=== PATIENT | female | born 1975 | race Asian ===

== ENCOUNTER 2018-01-03 08:21 | Inpatient (IN) | payer OTHER ==
[2018-01-03 08:54] LABS: ADD MAN DIFF? NO
[2018-01-03 08:59] LABS: WHITE BLOOD COUNT 9.1 10^3/ul (4.8-10.8)
[2018-01-03 08:59] LABS: BASOPHILS % 0.3 % (0.0-2.0); EOSINOPHILS # 0.1 10^3/ul (0.0-0.5); EOSINOPHILS % 1.2 % (0.0-7.0); HEMATOCRIT 42.1 % (37.0-47.0); HEMOGLOBIN 14.3 g/dl (12.0-16.0); IMMATURE GRANS #M 0.03 10^3/ul; IMMATURE GRANS % (M) 0.3 %; LYMPHOCYTES # 2.6 10^3/ul (0.8-2.9); LYMPHOCYTES % 28.7 % (15.0-51.0); MEAN CORPUSCULAR HEMOGLOBIN 28.7 pg (29.0-33.0); MEAN CORPUSCULAR VOLUME 84.4 fl (82.0-101.0); MEAN PLATELET VOLUME 9.2 fl (7.4-10.4); MONOCYTE # 0.5 10^3/ul (0.3-0.9); MONOCYTES % 5.8 % (0.0-11.0); NEUTROPHIL # 5.8 10^3/ul (1.6-7.5); NEUTROPHILS % 63.7 % (39.0-77.0); PLATELET COUNT 320 10^3/UL (140-415); RED BLOOD COUNT 4.99 10^6/ul (4.20-5.40); RED CELL DISTRIBUTION WIDTH 13.1 % (11.5-14.5)
[2018-01-03 09:12] LABS: HEMOGLOBIN A1C 10.7 % (0-5.9)
[2018-01-03 09:16] LABS: ALANINE AMINOTRANSFERASE 63 IU/L (13-69); ALBUMIN 4.1 g/dl (3.3-4.9); ALBUMIN/GLOBULIN RATIO 0.78; ALKALINE PHOSPHATASE 76 IU/L (42-121); ANION GAP 13 (8-16); ASPARTATE AMINO TRANSFERASE 54 IU/L (15-46); BILIRUBIN,INDIRECT 0.3 mg/dl (0-1.1); BILIRUBIN,TOTAL 0.3 mg/dl (0.2-1.3); BLOOD UREA NITROGEN 9 mg/dl (7-20); CARBON DIOXIDE 27 mmol/L (21-31); CHLORIDE 103 mmol/L (97-110); CHOL/HDL RATIO 3.4 RATIO; CHOLESTEROL 198 mg/dl (100-200); CREATINE KINASE 98 IU/L (23-200); CREATININE 0.53 mg/dl (0.44-1.00); GLUCOSE 305 mg/dl (70-220); HDL CHOLESTEROL 57 mg/dl (34-88); INR 0.87; LDL CHOLESTEROL,CALCULATED 114 mg/dl; PROTIME 11.9 Sec (11.9-14.9); PT RATIO 0.9; SODIUM 139 mmol/L (135-144); TOTAL PROTEIN 9.3 g/dl (6.1-8.1); TRIGLYCERIDES 133 mg/dl (0-149)
[2018-01-03 09:17] LABS: PARTIAL THROMBOPLASTIN TIME 26.9 Sec (25.0-35.0)
[2018-01-03] MEDS: OCULAR LUBRICANT 3.5 GM OPH OINT LEFT EYE ×2 (09:20→09:38)
[2018-01-03] MEDS: VALACYCLOVIR 500 MG TAB PO ×2 (09:21→21:46)
[2018-01-03 09:27] LABS: CK INDEX 0.4; CK-MB 0.37 ng/ml (0.0-2.4); TROPONIN-I < 0.010 ng/ml (0.000-0.120)
[2018-01-03] MEDS: LABETALOL HCL 20MG INJ IV (09:38)
[2018-01-03] MEDS ORDERED: predniSONE 20 MG TAB PO (10:00)
[2018-01-03] MEDS: SOD CHLORIDE 0.9% 1,000 ML IV (10:18)
[2018-01-03 10:44] LABS: ADD UMIC NO; UR ASCORBIC ACID 20 mg/dL (NEGATIVE); UR BILIRUBIN (Dip) NEGATIVE (NEGATIVE); UR BLOOD (Dip) NEGATIVE (NEGATIVE); UR CLARITY CLEAR (CLEAR); UR COLOR STRAW (YELLOW); UR GLUCOSE (Dip) 3+ mg/dL (NEGATIVE); UR KETONES (Dip) NEGATIVE (NEGATIVE); UR LEUKOCYTE ESTERASE (Dip) NEGATIVE Leu/ul (NEGATIVE); UR NITRITE (Dip) NEGATIVE (NEGATIVE); UR SPECIFIC GRAVITY (Dip) 1.011 (1.003-1.030); UR TOTAL PROTEIN (Dip) NEGATIVE (NEGATIVE); UR UROBILINOGEN (Dip) NEGATIVE (NEGATIVE)
[2018-01-03] MEDS ORDERED: ONDANSETRON 4 MG INJ IV ×2 (11:30→16:00)
[2018-01-03] MEDS ORDERED: NACL 0.9% 3 ML SYG IV (16:00)
[2018-01-03] MEDS ORDERED: IBUPROFEN 600 MG TAB PO (16:00)
[2018-01-03] MEDS ORDERED: GLUCOSE GEL 15 GRAM TUBE BUCCAL (16:30)
[2018-01-03] MEDS ORDERED: GLUCAGON 1 MG INJ IM (16:30)
[2018-01-03] MEDS ORDERED: DEXTROSE 50% 50 ML SYRINGE IV ×2 (16:30)
[2018-01-03] MEDS ORDERED: GLUCOSE GEL 15 GRAM TUBE PO ×2 (16:30)
[2018-01-03] MEDS: metFORMIN 500 MG TAB PO (18:07)
[2018-01-03] MEDS: INSULIN ASPART [NOVOLOG] 3 ML PEN SC ×3 (18:15→20:20)
[2018-01-03 19:24] LABS: TROPONIN-I < 0.010 ng/ml (0.000-0.120)
[2018-01-03] MEDS: FAMOTIDINE 20 MG TAB PO (20:12)
[2018-01-03] MEDS: ATORVASTATIN 10 MG TAB PO (20:12)
[2018-01-03] MEDS: hydrALAzine 20 MG INJ IV (20:13)
[2018-01-03] MEDS: INSULIN GLARGINE [LANTus] (100 UNITS/ML) SYG SC (21:10)
[2018-01-04 01:37] LABS: TROPONIN-I < 0.010 ng/ml (0.000-0.120)
[2018-01-04] MEDS: ACCU-CHEK XX (02:00)
[2018-01-04] MEDS: ACETAMINOPHEN 325 MG TAB PO (02:51)
[2018-01-04 05:59] LABS: ADD MAN DIFF? NO
[2018-01-04 06:10] LABS: BASOPHILS % 0.4 % (0.0-2.0); EOSINOPHILS # 0.1 10^3/ul (0.0-0.5); EOSINOPHILS % 1.2 % (0.0-7.0); HEMATOCRIT 40.1 % (37.0-47.0); HEMOGLOBIN 13.5 g/dl (12.0-16.0); IMMATURE GRANS #M 0.03 10^3/ul; IMMATURE GRANS % (M) 0.3 %; LYMPHOCYTES # 2.8 10^3/ul (0.8-2.9); LYMPHOCYTES % 26.9 % (15.0-51.0); MEAN CORPUSCULAR HEMOGLOBIN 28.3 pg (29.0-33.0); MEAN CORPUSCULAR HGB CONC 33.7 g/dl (32.0-37.0); MEAN CORPUSCULAR VOLUME 84.1 fl (82.0-101.0); MEAN PLATELET VOLUME 9.4 fl (7.4-10.4); MONOCYTE # 0.7 10^3/ul (0.3-0.9); MONOCYTES % 6.2 % (0.0-11.0); NEUTROPHIL # 6.8 10^3/ul (1.6-7.5); PLATELET COUNT 302 10^3/UL (140-415); RED BLOOD COUNT 4.77 10^6/ul (4.20-5.40); RED CELL DISTRIBUTION WIDTH 13.2 % (11.5-14.5)
[2018-01-04 06:10] LABS: WHITE BLOOD COUNT 10.5 10^3/ul (4.8-10.8)
[2018-01-04 06:53] LABS: ANION GAP 13 (8-16); BLOOD UREA NITROGEN 9 mg/dl (7-20); CALCIUM 9.2 mg/dl (8.4-10.2); CARBON DIOXIDE 25 mmol/L (21-31); CHLORIDE 105 mmol/L (97-110); CREATININE 0.53 mg/dl (0.44-1.00); GLUCOSE 219 mg/dl (70-220); SODIUM 139 mmol/L (135-144)
[2018-01-04 07:00] LABS: TROPONIN-I < 0.010 ng/ml (0.000-0.120)
[2018-01-04] MEDS: metFORMIN 500 MG TAB PO ×2 (07:30→17:22)
[2018-01-04] MEDS: INSULIN ASPART [NOVOLOG] 3 ML PEN SC ×7 (07:34→20:04)
[2018-01-04] MEDS: predniSONE 20 MG TAB PO (08:20)
[2018-01-04] MEDS: VALACYCLOVIR 500 MG TAB PO ×3 (08:20→20:04)
[2018-01-04] MEDS: FAMOTIDINE 20 MG TAB PO ×2 (08:21→20:04)
[2018-01-04] MEDS: LINAGLIPTIN 5 MG TABLET PO (08:21)
[2018-01-04] MEDS: ASPIRIN 81 MG TAB PO (08:21)
[2018-01-04] MEDS: ENOXAPARIN 30 MG/0.3 ML SYG SC (08:27)
[2018-01-04] MEDS ORDERED: ASPIRIN 81 MG TAB PO (09:00)
[2018-01-04] MEDS: NPH, HUMAN INSULIN ISOPHANE 3ML VIAL SC (10:19)
[2018-01-04] MEDS: ATORVASTATIN 10 MG TAB PO (20:04)
[2018-01-04] MEDS: INSULIN GLARGINE [LANTus] (100 UNITS/ML) SYG SC (20:25)
[2018-01-05] MEDS: ACCU-CHEK XX (02:00)
[2018-01-05] MEDS: metFORMIN 500 MG TAB PO ×2 (07:47→17:39)
[2018-01-05] MEDS: INSULIN ASPART [NOVOLOG] 3 ML PEN SC ×6 (07:52→17:53)
[2018-01-05] MEDS: VALACYCLOVIR 500 MG TAB PO ×2 (08:54→12:12)
[2018-01-05] MEDS: predniSONE 20 MG TAB PO (08:54)
[2018-01-05] MEDS: ASPIRIN 81 MG TAB PO (08:55)
[2018-01-05] MEDS: LINAGLIPTIN 5 MG TABLET PO (08:55)
[2018-01-05] MEDS: LISINOPRIL 20 MG TAB PO (08:55)
[2018-01-05] MEDS: FAMOTIDINE 20 MG TAB PO (08:55)
[2018-01-05] MEDS: ENOXAPARIN 30 MG/0.3 ML SYG SC (08:58)
[2018-01-05] MEDS: NPH, HUMAN INSULIN ISOPHANE 3ML VIAL SC (09:04)
== END 2018-01-05 18:26 | disposition home or self-care (01) | DRG 74 ==
LOC: E/R 08:21 → 6WM 11:06
DX: G51.0 Bell's palsy (principal); I16.1 Hypertensive emergency; E11.41 Type 2 diabetes mellitus with diabetic mononeuropathy; G58.9 Mononeuropathy, unspecified
CPT/HCPCS: 36415; 70450; 70544; 70549; 70551; 71045; 80048; 80053; 80061; 81003; 81025; 82550; 82553; 82962; 83036; 84484; 85025; 85610; 85730; 93306; 99291-25; G0378